=== PATIENT | female | born 1975 | race American Indian/Alaskan Native ===

== ENCOUNTER 2020-02-19 12:52 | Outpatient (CLI) | payer OTHER ==
[2020-02-19] MEDS ORDERED: ALBUTEROL 2.5 MG/3 ML NEBU IH ONE (13:35)
== END 2020-02-19 12:53 | disposition home or self-care (01) ==
LOC: PF 12:52
PROVIDERS: ATTEND Internal Medicine
DX: R06.02 Shortness of breath (principal); K74.60 Unspecified cirrhosis of liver; B19.20 Unspecified viral hepatitis C without hepatic coma; N17.9 Acute kidney failure, unspecified; F31.9 Bipolar disorder, unspecified; R41.3 Other amnesia; I38 Endocarditis, valve unspecified; Z02.71 Encounter for disability determination
CPT/HCPCS: 94060; 94729